=== PATIENT | female | born 1965 | race Two or more races ===

== ENCOUNTER 2018-12-27 00:24 | Emergency (ER) | payer BC ==
[~2018-12-27] VITALS: Ht 160 cm; Wt 59.7 kg
[~2018-12-27 00:24] MED LIST: DESV100T; LEVO100C2
--- NOTE | 2018-12-27 00:26 | NUR ---
PT NOT IN LOBBY
[2018-12-27 01:25] LABS: ANION GAP 9 mmol/L (5-15); CALCIUM 9.2 mg/dL (8.5-10.1); CHLORIDE 112 mmol/L (98-107); CREATININE 0.85 mg/dL (0.55-1.02)
[2018-12-27 01:26] LABS: BASOPHILS # (AUTO) 0.04 x10^3/uL (0-0.1); BASOPHILS % (AUTO) 1 % (0-1); EOSINOPHILS # (AUTO) 0.27 x10^3/uL (0-0.4); EOSINOPHILS % (AUTO) 4 % (1-7); LYMPHOCYTES # (AUTO) 2.48 x10^3/uL (1-3.4); LYMPHOCYTES % (AUTO) 37 % (22-44); MD NO; MEAN CORPUSCULAR HEMOGLOBIN 29.9 pg (27.0-34.8); MEAN CORPUSCULAR HGB CONC 34.1 g/dL (32.4-35.8); MEAN CORPUSCULAR VOLUME 87.8 fL (80-100); MEAN PLATELET VOLUME 7.7 fL (7.4-10.4); MONOCYTES # (AUTO) 0.52 x10^3/uL (0.2-0.8); MONOCYTES % (AUTO) 8 % (2-9); NEUTROPHILS # (AUTO) 3.38 x10^3/uL (1.8-6.8); NEUTROPHILS % (AUTO) 51 % (42-75); PLATELET COUNT 253 x10^3/uL (130-400); RED CELL DISTRIBUTION WIDTH 13.6 % (9.6-15.2)
[2018-12-27 02:27] VITALS: BP 145/79
== END 2018-12-27 02:45 | disposition home or self-care (01) ==
LOC: ED 02:10
DX: R55 Syncope and collapse (principal); R20.2 Paresthesia of skin; E03.9 Hypothyroidism, unspecified; Z79.82 Long term (current) use of aspirin
CPT/HCPCS: 36415; 80048; 83735; 85025; 93005; 99284

== ENCOUNTER 2020-09-10 11:21 | Emergency (ER) | payer BC ==
[~2020-09-10] VITALS: Ht 160 cm; Wt 60.7 kg
[2020-09-10 12:22] VITALS: BP 116/55
== END 2020-09-10 12:28 | disposition home or self-care (01) ==
LOC: ED 12:11
DX: U07.1 COVID-19 (principal); J06.9 Acute upper respiratory infection, unspecified; E03.9 Hypothyroidism, unspecified
CPT/HCPCS: 87635; 99283